=== PATIENT | female | born 1960 | race African-American/Black ===

== ENCOUNTER 2023-02-15 18:15 | Inpatient (IN) | payer SELFPAY ==
[~2023-02-15 18:15] MED LIST: Iopamidol-370 76% 500 ML MDV (1 ML CHARGE) ONE
[2023-02-15] MEDS ORDERED: Aspirin Chewable 81 MG TAB ONE (18:51)
[2023-02-15] MEDS ORDERED: Nitroglycerin 0.4 MG TAB 1 EACH ONE (18:51)
[2023-02-15] MEDS ORDERED: Famotidine/PF 20 mg/2ml Vial ONE (18:51)
[2023-02-15 19:00] LABS: #Basophils 0.1 thou/uL (0.0-0.2); #Eosinphils 0.1 thou/uL (0.0-0.7); #Monocytes 0.5 thou/uL (0.11-0.59); #Neutrophils 5.5 thou/uL (1.40-6.50); %Basophils 0.7 % (0.0-1.0); %Eosinophils 0.7 % (0.0-10.0); %Lymphocytes 23.7 % (21.0-51.0); %Monocytes 6.7 % (0.0-10.0); %Neutrophils 67.7 % (42.0-75.0); Hemoglobin 12.4 g/dL (12.0-16.0); Mean Corpuscular HGB CONC 32.9 g/dL (32.0-36.0); Mean Corpuscular Volume 94.3 fl (78.0-98.0); Mean Platelet Volume 9.9 fL (7.4-10.4); Platelet Count 254 10x3/uL (130-400); RBC Distribution Width 14.3 % (11.5-14.5); White Blood Cell (WBC) Count 8.1 10x3/uL (4.8-10.8)
[2023-02-15 19:24] LABS: ALT (SGPT) 16 U/L (8-55); AST (SGOT) 20 U/L (5-34); Albumin 4.3 g/dL (3.4-4.8); Alkaline Phosphatase 55 U/L (40-110); Anion Gap 15 mmol/L (10-20); BUN (Urea Nitrogen) 7 mg/dL (9.8-20.1); Bilirubin, Total 0.4 mg/dL (0.2-1.2); Calc. Creatinine Clearance 0 mL/min (70-130); Calcium 10.1 mg/dL (7.8-10.44); Carbon Dioxide 25 mmol/L (23-31); Chloride 105 mmol/L (98-107); Estimated GFR 56; Globulin 3.6 g/dL (2.4-3.5); Glucose 144 mg/dL (80-115); Lipase 37 U/L (8-78); Potassium 3.7 mmol/L (3.5-5.1); Protein, Total 7.9 g/dL (5.8-8.1); Sodium 141 mmol/L (136-145)
[2023-02-15] MEDS ORDERED: Morphine 4 MG/ML VIAL ONE (20:42)
[2023-02-15] MEDS ORDERED: Cefepime 2 GM VIAL ONE (20:42)
[2023-02-15] MEDS ORDERED: metroNIDAZOLE 500 MG/100 ML BAG ONE (21:32)
[2023-02-15 22:57] LABS: Troponin I Less than 0.010 ng/mL (< 0.028)
[2023-02-15] MEDS ORDERED: Ondansetron PF 4 MG/2 ML Vial IVP PRN (23:34)
[2023-02-15] MEDS ORDERED: Acetaminophen 325 MG TAB PO PRN (23:34)
[2023-02-16] MEDS ORDERED: Pantoprazole 40 MG VIAL IVP SCH (00:15)
[2023-02-16 01:19] VITALS: BMI 35.9
[2023-02-16 02:06] LABS: Troponin I Less than 0.010 ng/mL (< 0.028)
[2023-02-16 05:48] LABS: #Eosinphils 0.1 thou/uL (0.0-0.7); #Monocytes 0.8 thou/uL (0.11-0.59); #Neutrophils 5.5 thou/uL (1.40-6.50); %Basophils 0.5 % (0.0-1.0); %Eosinophils 1.3 % (0.0-10.0); %Lymphocytes 25.2 % (21.0-51.0); %Neutrophils 63.8 % (42.0-75.0); Hemoglobin 11.8 g/dL (12.0-16.0); Mean Corpuscular HGB CONC 32.7 g/dL (32.0-36.0); Mean Corpuscular Hemoglobin 30.9 pg (27.0-31.0); Mean Corpuscular Volume 94.5 fl (78.0-98.0); Mean Platelet Volume 9.9 fL (7.4-10.4); Platelet Count 221 10x3/uL (130-400); RBC Distribution Width 14.6 % (11.5-14.5); Red Blood Cell (RBC) Count 3.82 mill/uL (4.20-5.40); White Blood Cell (WBC) Count 8.6 10x3/uL (4.8-10.8)
[2023-02-16 06:17] LABS: ALT (SGPT) 13 U/L (8-55); AST (SGOT) 23 U/L (5-34); Albumin 3.5 g/dL (3.4-4.8); Alkaline Phosphatase 47 U/L (40-110); Anion Gap 12 mmol/L (10-20); BUN (Urea Nitrogen) 6 mg/dL (9.8-20.1); Bilirubin, Total 0.5 mg/dL (0.2-1.2); Calc. Creatinine Clearance 109 mL/min (70-130); Calcium 9.4 mg/dL (7.8-10.44); Carbon Dioxide 22 mmol/L (23-31); Chloride 109 mmol/L (98-107); Estimated GFR 75; Globulin 2.7 g/dL (2.4-3.5); Glucose 103 mg/dL (80-115); Potassium 3.7 mmol/L (3.5-5.1); Protein, Total 6.2 g/dL (5.8-8.1); Sodium 139 mmol/L (136-145)
[2023-02-16] MEDS: metroNIDAZOLE 500 MG in Premix Bag 1 BAG IVPB SCH ×3 (07:43→20:57)
[2023-02-16] MEDS: cefTRIAXone\\ROCEPHIN 2 GM in Sodium Chloride 0.9% 100 ML IVPB SCH (08:01)
[2023-02-16] MEDS: Pantoprazole 40 MG VIAL IVP SCH (08:01)
[2023-02-16] MEDS ORDERED: Morphine 2 MG/ML VIAL ONE (11:11)
[2023-02-16 12:24] LABS: Bacteria/HPF None Seen HPF (None Seen); Bilirubin Negative (Negative); Blood, Urine Trace (Negative); CAUTI Indications for Culture Dysuria,urgency,freq; Clarity Clear (Clear); Glucose, Urine (Dipstick) Normal (Negative); Ketone, Urine Negative (Negative); Leukocyte 250 Leu/uL (Negative); Nitrite Negative (Negative); Protein, Urine (Dipstick) 10 mg/dL (Neg-Trace); RBC/HPF 0-3 HPF (0-3); Specific Gravity, Urine 1.047 (1.002-1.036); Urobilinogen Normal mg/dL (Less than 2); WBC/HPF 21-50 HPF (0-3); pH, Urine 5.5 (5.0-9.0)
[2023-02-16 12:33] LABS: Urine Culture Reflex Yes Yes
[2023-02-16] MEDS ORDERED: Morphine 2 MG/ML VIAL SLOW IVP SCH (14:45)
[2023-02-16] MEDS ORDERED: hydrOXYzine 25 MG TAB PO PRN (17:47)
[2023-02-16] MEDS ORDERED: Senokot S 8.6-50 MG TAB PO PRN (18:23)
[2023-02-16] MEDS: PARoxetine 20 MG TAB PO SCH (20:12)
[2023-02-16] MEDS: metFORMIN 500 MG TAB PO SCH (20:12)
[2023-02-16] MEDS: Betamethasone 0.1% Cream 15 GM TUBE TOP SCH (20:12)
[2023-02-16] MEDS: Simethicone Chewable 80 MG TAB PO PRN (20:15)
[2023-02-16] MEDS ORDERED: [UNRECOGNIZED DRUG - OTHER] TOP SCH (21:00)
[2023-02-16] MEDS ORDERED: Atorvastatin Calcium 10 MG TAB PO SCH (21:00)
[2023-02-16] MEDS ORDERED: RUXOLITINIB PHOSPHATE TOP SCH (21:00)
[2023-02-17] MEDS ORDERED: Levothyroxine Sodium 75 MCG TAB PO SCH (06:00)
[2023-02-17] MEDS: metroNIDAZOLE 500 MG in Premix Bag 1 BAG IVPB SCH (06:02)
[2023-02-17 06:35] LABS: #Eosinphils 0.2 thou/uL (0.0-0.7); #Monocytes 0.6 thou/uL (0.11-0.59); #Neutrophils 5.3 thou/uL (1.40-6.50); %Basophils 0.5 % (0.0-1.0); %Eosinophils 2.3 % (0.0-10.0); %Lymphocytes 26.6 % (21.0-51.0); %Monocytes 7.4 % (0.0-10.0); Hemoglobin 12.8 g/dL (12.0-16.0); Mean Corpuscular HGB CONC 32.1 g/dL (32.0-36.0); Mean Corpuscular Hemoglobin 30.9 pg (27.0-31.0); Mean Corpuscular Volume 96.4 fl (78.0-98.0); Mean Platelet Volume 10.2 fL (7.4-10.4); Platelet Count 254 10x3/uL (130-400); RBC Distribution Width 14.8 % (11.5-14.5); Red Blood Cell (RBC) Count 4.14 mill/uL (4.20-5.40); White Blood Cell (WBC) Count 8.4 10x3/uL (4.8-10.8)
[2023-02-17 07:06] LABS: ALT (SGPT) 13 U/L (8-55); AST (SGOT) 18 U/L (5-34); Albumin 3.9 g/dL (3.4-4.8); Alkaline Phosphatase 54 U/L (40-110); Anion Gap 9 mmol/L (10-20); BUN (Urea Nitrogen) 5 mg/dL (9.8-20.1); Bilirubin, Total 0.5 mg/dL (0.2-1.2); Calc. Creatinine Clearance 84 mL/min (70-130); Calcium 9.6 mg/dL (7.8-10.44); Carbon Dioxide 25 mmol/L (23-31); Chloride 107 mmol/L (98-107); Estimated GFR 55; Globulin 3.3 g/dL (2.4-3.5); Glucose 133 mg/dL (80-115); Potassium 3.6 mmol/L (3.5-5.1); Protein, Total 7.2 g/dL (5.8-8.1); Sodium 137 mmol/L (136-145)
[2023-02-17] MEDS: PARoxetine 20 MG TAB PO SCH (09:10)
[2023-02-17] MEDS: metFORMIN 500 MG TAB PO SCH (09:11)
[2023-02-17] MEDS: Pantoprazole 40 MG VIAL IVP SCH (09:11)
[2023-02-17] MEDS: Betamethasone 0.1% Cream 15 GM TUBE TOP SCH (09:12)
[2023-02-17] MEDS: cefTRIAXone\\ROCEPHIN 2 GM in Sodium Chloride 0.9% 100 ML IVPB SCH (09:51)
[2023-02-17] MEDS: Simethicone Chewable 80 MG TAB PO PRN (10:59)
[2023-02-17 12:23] VITALS: BP 119/66; TEMP 98.1
== END 2023-02-17 13:25 | disposition home or self-care (01) | DRG 392 ==
LOC: ERS 18:15 → 2SW 21:40 → OBSVTOIN 02-17 08:43
PROVIDERS: ADMIT Internal Medicine; ATTEND Emergency Medicine
DX: K21.9 Gastro-esophageal reflux disease without esophagitis (principal); R10.9 Unspecified abdominal pain; R73.03 Prediabetes; E78.5 Hyperlipidemia, unspecified; E03.9 Hypothyroidism, unspecified; Z79.899 Other long term (current) drug therapy; Z79.890 Hormone replacement therapy; Z79.84 Long term (current) use of oral hypoglycemic drugs; Z88.0 Allergy status to penicillin; Z88.6 Allergy status to analgesic agent
CPT/HCPCS: 36415; 36416; 71045; 74177; 76705; 78227; 80053; 81001; 83690; 83880; 84484; 85025; 87086; 93005; 94760; 96365; 96374; 96375; 96376; A9537; C9113; G0378; J0692; J0696; J2270; J2272; J2405; J3490; Q9967; S0028